=== PATIENT | male | born 1995 | race Caucasian/White ===

== ENCOUNTER 2016-08-26 21:33 | Emergency (ER) | payer SELFPAY ==
[~2016-08-26] VITALS: Ht 175.3 cm; Wt 59.1 kg
[2016-08-26 21:34] VITALS: TEMP 98
[2016-08-26 23:12] VITALS: BP 113/76; PULSE 91
== END 2016-08-26 23:13 | disposition home or self-care (01) ==
LOC: COL.ER 21:33
DX: S06.9X1A Unspecified intracranial injury with loss of consciousness of 30 minutes or less, initial encounter (principal); Y04.0XXA Assault by unarmed brawl or fight, initial encounter
CPT/HCPCS: J1200; J1885